=== PATIENT | male | born 1960 | race Two or more races ===

== ENCOUNTER 2022-07-14 16:26 | Emergency (ER) | payer BC ==
[~2022-07-14] VITALS: Ht 175.3 cm; Wt 85.3 kg
[2022-07-14 17:15] VITALS: BP_SYST 144
--- NOTE | 2022-07-14 17:22 | NUR ---
BIB WITH C/C OF RIGHT LATERAL ABDOMINAL PAIN FOR 1 WEEK NOW. PT DENIES ANY N/V. REPORTS PAIN WITH DEEP PALPATION AND STATES WHERE IT HURTS IT IS ITCHY WELL. NO PROBLEMS URINATION. DENIES ANY FLANK PAIN. PT STATES IT FEELS LIKE A "SIDE ACHE." NO MEDICAL HX.
--- NOTE | 2022-07-14 17:24 | NUR ---
PLACED IN WAITING ROOM.
--- NOTE | 2022-07-14 17:59 | NUR ---
PLACED IN ROOM 7, REPORT GIVEN TO SHERRILL SINHA.
--- NOTE | 2022-07-14 18:30 | NUR ---
MD DR MARTINEZ AT BEDSIDE
[2022-07-14 19:16] LABS: BASOPHILS # (AUTO) 0.1 K/uL (0.0-0.2); BASOPHILS % (AUTO) 0.6 % (0.0-2.0); EOSINOPHILS # (AUTO) 0.2 K/uL (0.0-0.4); EOSINOPHILS % (AUTO) 1.8 % (0.0-4.0); HEMATOCRIT 43.9 % (36-54); LYMPHOCYTES # (AUTO) 2.5 K/uL (1.0-5.5); LYMPHOCYTES % (AUTO) 26.2 % (20.5-51.5); MEAN CORPUSCULAR HEMOGLOBIN 28 pg (27-31); MEAN CORPUSCULAR HGB CONC 34 % (32-36); MEAN CORPUSCULAR VOLUME 82 fL (79.0-98.0); MONOCYTES # (AUTO) 0.6 K/uL (0.0-1.0); MONOCYTES % (AUTO) 6.3 % (1.7-9.3); NEUTROPHILS # (AUTO) 6.1 K/uL (1.8-7.7); NEUTROPHILS % (AUTO) 65.1 % (40.0-70.0); PLATELET COUNT (AUTO) 269 K/uL (130-430); RED BLOOD CELL COUNT(AUTO) 5.33 MIL/uL (4.2-6.2); RED CELL DISTRIBUTION WIDTH 13.1 % (9.0-15.0); WHITE BLOOD COUNT (AUTO) 9.3 K/uL (4.8-10.8)
[2022-07-14 19:37] LABS: BILIRUBIN,URINE NEGATIVE (NEGATIVE); BLOOD, URINE NEGATIVE (NEGATIVE); CLARITY/URINE CLEAR (CLEAR); COLOR,URINE YELLOW (YELLOW); GLUCOSE,URINE 3+ (NEGATIVE); KETONES,URINE 1+ (NEGATIVE); LEUKOCYTE ESTERASE ,URINE NEGATIVE (NEGATIVE); NITRITE, URINE NEGATIVE (NEGATIVE); PROTEIN URINE NEGATIVE (NEGATIVE); UROBILINOGEN,URINE 0.2 (0.2-1.0)
[2022-07-14 20:01] LABS: BACTERIA,URINE None Seen /HPF (None Seen); RBC,URINE 0-3 /HPF (0-3); WBC,URINE 0-3 /HPF (0-3)
[2022-07-14 20:02] LABS: MUCUS,URINE None Seen /LPF (None Seen); URIC ACID CRYSTALS,URINE 0-10 /HPF (None Seen)
[2022-07-14 20:27] LABS: ALBUMIN 4.4 g/dL (3.4-4.8); CREATININE 1.1 mg/dL (0.55-1.30); POTASSIUM 3.7 mmol/L (3.5-5.1); TOTAL BILIRUBIN 0.5 mg/dL (0.0-1.0)
[2022-07-14 21:18] VITALS: BP_SYST 144
--- NOTE | 2022-07-14 21:19 | NUR ---
Patient given written and verbal discharge instructions and verbalizes understanding. ER MD discussed with patient the results and treatment provided. Patient in stable condition. ID arm band removed. No Rx given. Patient educated on pain management and to follow up with PMD. Pain Scale 0/10. Opportunity for questions provided and answered. Medication side effect fact sheet provided.
== END 2022-07-14 21:18 | disposition home or self-care (01) ==
LOC: EDSEX 16:26 → SED 16:26
DX: R10.11 Right upper quadrant pain (principal); K76.0 Fatty (change of) liver, not elsewhere classified; E11.9 Type 2 diabetes mellitus without complications; Z79.899 Other long term (current) drug therapy
CPT/HCPCS: 36415; 76376; 80053; 81000; 85025; 99284